=== PATIENT | female | born 1990 | race Caucasian/White ===

== ENCOUNTER 2018-01-10 01:40 | Emergency (ER) | payer SELFPAY, OTHER ==
[2018-01-10] MEDS: IBUPROFEN 600 MG TAB PO (05:17)
== END 2018-01-10 06:20 | disposition home or self-care (01) ==
LOC: FTE 01:40
DX: S69.91XA Unspecified injury of right wrist, hand and finger(s), initial encounter (principal); F17.210 Nicotine dependence, cigarettes, uncomplicated; W22.8XXA Striking against or struck by other objects, initial encounter; Y92.9 Unspecified place or not applicable
CPT/HCPCS: 73090; 73090-RT; 73110-RT; 73130-RT; 99283-25